=== PATIENT | female | born 1965 | race Caucasian/White ===

== ENCOUNTER 2019-03-20 17:30 | Emergency (ER) | payer OTHER ==
[~2019-03-20] VITALS: Ht 165.1 cm; Wt 63.0 kg
[2019-03-20] MEDS ORDERED: MAGNESIUM SULFATE 2 GM, MVI, ADULT NO.1 WITH VIT K 10 ML, THIAMINE HCL 100 MG, FOLIC AC... IV ONE ×5 (19:45)
[2019-03-20 20:05] LABS: BASOPHILS % (AUTO) 0.5 % (0.0-2.0); EOSINOPHILS % (AUTO) 2.3 % (1.0-6.0); HEMATOCRIT 38.9 % (36-46); HEMOGLOBIN 13.2 g/dL (12.0-16.0); LYMPHOCYTES # (AUTO) 2.8 K/uL (1.0-4.8); LYMPHOCYTES % (AUTO) 57.2 % (22.0-44.0); MEAN CORPUSCULAR HEMOGLOBIN 31.9 pg (26.0-34.0); MEAN CORPUSCULAR HGB CONC 33.8 G/dL (31.0-37.0); MEAN CORPUSCULAR VOLUME 95 fL (80-100); MONOCYTES # (AUTO) 0.3 K/uL (0.1-1.0); MONOCYTES % (AUTO) 5.3 % (2.0-9.0); NEUTROPHILS # (AUTO) 1.7 K/uL (1.8-7.7); NEUTROPHILS % (AUTO) 34.7 % (40.0-70.0); PLATELET COUNT (AUTO) 302 K/uL (150-450); RED BLOOD CELL COUNT(AUTO) 4.12 MIL/uL (4.00-5.20); RED CELL DISTRIBUTION WIDTH 13.1 % (11.5-14.5)
[2019-03-20 20:28] LABS: ANION GAP 6 mmol/L (8-16); CALCIUM, TOTAL 8.5 mg/dL (8.8-10.5); CARBON DIOXIDE 30 mmol/L (22-29); CHLORIDE 110 mmol/L (98-107); CREATININE 0.56 mg/dL (0.60-1.30); GLOMERULAR FILTR. RATE CALC > 60 mL/min (>60); GLUCOSE,RANDOM 110 mg/dL (70-110); POTASSIUM 3.8 mmol/L (3.5-5.1); SODIUM SERUM 146 mmol/L (136-145); UREA NITROGEN, BLOOD 7 mg/dL (7-18)
[2019-03-20 20:34] LABS: ALANINE AMINOTRANSFERASE 21 U/L (12-78); ALBUMIN 3.4 g/dL (3.4-5.0); ALKALINE PHOSPHATASE 81 U/L (46-116); ASPARTATE AMINOTRANSFERASE 15 U/L (15-37); BILIRUBIN,TOTAL 0.1 mg/dL (0.1-1.0); TOTAL PROTEIN, SERUM 6.7 g/dL (6.4-8.2)
[2019-03-21 01:34] VITALS: BP 107/60
== END 2019-03-21 02:14 | disposition home or self-care (01) ==
LOC: EMS 17:30
DX: F10.229 Alcohol dependence with intoxication, unspecified (principal); Z59.0 Homelessness; Y90.7 Blood alcohol level of 200-239 mg/100 ml
CPT/HCPCS: 36415; 80053; 85025; 96365; 96366; 99283; G0480; J3411; J3475; J3490 ×2; J7030

== ENCOUNTER 2019-04-20 19:54 | Emergency (ER) | payer OTHER ==
[~2019-04-20] VITALS: Ht 154.9 cm; Wt 52.3 kg
[2019-04-20 21:36] LABS: APPEARANCE,URINE CLOUDY (CLEAR); GLUCOSE, URINE (UA) NEGATIVE (NEGATIVE); KETONES,URINE NEGATIVE (NEGATIVE); LEUKOCYTE ESTERASE ,URINE MODERATE (NEGATIVE); NITRATE,URINE NEGATIVE (NEGATIVE); OCCULT BLOOD,URINE TRACE (NEGATIVE); PROTEIN,URINE NEGATIVE (NEGATIVE); UROBILINOGEN,URINE 0.2 mg/dL (<=1.0)
[2019-04-20 21:37] LABS: AMPHET/METH SCREEN,URINE POSITIVE (NEGATIVE); BARBITURATE SCREEN, URINE NEGATIVE (NEGATIVE); BENZODIAZEPINES SCREEN,URINE NEGATIVE (NEGATIVE); CANNABINOID SCREEN,URINE NEGATIVE (NEGATIVE); COCAINE SCREEN,URINE NEGATIVE (NEGATIVE); METHADONE SCREEN, URINE NEGATIVE (NEGATIVE); OPIATE SCREEN,URINE NEGATIVE (NEGATIVE)
[2019-04-20 21:38] LABS: PHENCYCLIDINE SCREEN,URINE NEGATIVE (NEGATIVE)
[2019-04-20 21:42] LABS: BASOPHILS % (AUTO) 0.8 % (0.0-2.0); EOSINOPHILS % (AUTO) 1.7 % (1.0-6.0); HEMATOCRIT 38.1 % (36-46); LYMPHOCYTES # (AUTO) 3.3 K/uL (1.0-4.8); MEAN CORPUSCULAR HEMOGLOBIN 31.7 pg (26.0-34.0); MEAN CORPUSCULAR HGB CONC 34.3 G/dL (31.0-37.0); MEAN CORPUSCULAR VOLUME 93 fL (80-100); MONOCYTES # (AUTO) 0.5 K/uL (0.1-1.0); MONOCYTES % (AUTO) 6.6 % (2.0-9.0); NEUTROPHILS # (AUTO) 3.4 K/uL (1.8-7.7); NEUTROPHILS % (AUTO) 45.9 % (40.0-70.0); PLATELET COUNT (AUTO) 297 K/uL (150-450); RED BLOOD CELL COUNT(AUTO) 4.11 MIL/uL (4.00-5.20); RED CELL DISTRIBUTION WIDTH 13.2 % (11.5-14.5)
[2019-04-20 21:42] LABS: BILIRUBIN,URINE PRELIM. POSITIVE (NEGATIVE)
[2019-04-20 21:47] LABS: BACTERIA,URINE Few /HPF (None Seen); CALCIUM OXALATE CRYSTALS,UR Many /LPF (None Seen); RBC,URINE 0-2 /HPF (0-2); SQUAMOUS EPITHELIAL CELL,UR Moderate /LPF (None Seen)
[2019-04-20 21:49] LABS: WBC,URINE 51-100 /HPF (0-5)
[2019-04-20 21:55] LABS: ANION GAP 7 mmol/L (8-16); CALCIUM, TOTAL 9.3 mg/dL (8.8-10.5); CARBON DIOXIDE 29 mmol/L (22-29); CHLORIDE 104 mmol/L (98-107); CREATININE 0.64 mg/dL (0.60-1.30); GLOMERULAR FILTR. RATE CALC > 60 mL/min (>60); GLUCOSE,RANDOM 123 mg/dL (70-110); POTASSIUM 4.2 mmol/L (3.5-5.1); SODIUM SERUM 140 mmol/L (136-145); UREA NITROGEN, BLOOD 16 mg/dL (7-18)
[2019-04-20 22:02] LABS: ALANINE AMINOTRANSFERASE 26 U/L (12-78); ALBUMIN 3.7 g/dL (3.4-5.0); ALKALINE PHOSPHATASE 116 U/L (46-116); ASPARTATE AMINOTRANSFERASE 23 U/L (15-37); BILIRUBIN,TOTAL 0.2 mg/dL (0.1-1.0); TOTAL PROTEIN, SERUM 7.3 g/dL (6.4-8.2)
[2019-04-20 22:44] VITALS: BP 134/68
[2019-04-20] MEDS ORDERED: KETOROLAC TROMETHAMINE 30 MG/ML VIAL IM ONE (22:45)
[2019-04-20] MEDS ORDERED: CEPHALEXIN MONOHYDRATE 500 MG CAPSULE PO ONE (22:45)
== END 2019-04-20 23:14 | disposition home or self-care (01) ==
LOC: EMS 19:55
DX: N39.0 Urinary tract infection, site not specified (principal); F15.10 Other stimulant abuse, uncomplicated; Z59.0 Homelessness
CPT/HCPCS: 36415; 71046; 80053; 80307; 81001; 85025; 87086; 96372; 99284; G0480; J1885

== ENCOUNTER 2019-05-31 12:47 | Inpatient (IN) | payer MEDICAID ==
[~2019-05-31] VITALS: Ht 152.4 cm; Wt 58.9 kg
[2019-05-31 14:42] VITALS: BP 122/73
[2019-05-31] MEDS ORDERED: HALOPERIDOL 5 MG TABLET PO PRN (14:45)
[2019-05-31] MEDS ORDERED: LORazepam 2 MG TABLET PO PRN (14:45)
[2019-05-31] MEDS ORDERED: ZOLPIDEM TARTRATE 10 MG TABLET PO PRN (14:45)
[2019-05-31] MEDS ORDERED: INFLUENZA VIRUS VACCINE QVS 2019-20 (3YR+)/PF 60 MCG/0.5 ML SYRINGE IM ONE (15:15)
[2019-05-31] MEDS ORDERED: NICOTINE 14 MG/24 HOUR PATCH TD PRN (18:45)
[2019-05-31] MEDS ORDERED: CloNIDine HCL 0.1 MG TABLET PO PRN (18:45)
[2019-05-31] MEDS ORDERED: ALBUTEROL SULFATE HFA 90 MCG/PUFF 8 GM INHALER IH PRN (18:45)
[2019-05-31] MEDS ORDERED: IBUPROFEN 400 MG TABLET PO PRN (18:45)
[2019-05-31] MEDS ORDERED: DOCUSATE SODIUM 100 MG CAPSULE PO PRN (18:45)
[2019-05-31] MEDS ORDERED: MAG HYDROX/AL HYDROX/SIMETH ES 30 ML SUSPENSION UDCUP PO PRN (18:45)
[2019-05-31] MEDS ORDERED: MAGNESIUM HYDROXIDE SUSPENSION 30 ML UDCUP PO PRN (18:45)
[2019-05-31] MEDS ORDERED: ONDANSETRON HCL 4 MG TABLET PO PRN (18:45)
[2019-05-31] MEDS ORDERED: ACETAMINOPHEN 325 MG TABLET PO PRN (18:45)
[2019-05-31] MEDS ORDERED: LOPERAMIDE HCL 2 MG CAPSULE PO PRN (18:45)
[2019-05-31] MEDS ORDERED: PETROLATUM,WHITE 28 GM JELLY TP PRN (18:45)
[2019-05-31 19:48] VITALS: BP 109/74
[2019-06-01 02:48] VITALS: BP 120/93
[2019-06-01] MEDS ORDERED: DiphenhydrAMINE HCL 25 MG CAPSULE PO PRN (14:45)
[2019-06-01] MEDS: LORATADINE 10 MG TABLET PO PRN (18:10)
[2019-06-01] MEDS: GuaiFENesin/D-METHORPHAN [SUGAR-FREE] 200-20MG/10 ML SYRUP UDCUP PO PRN (18:10)
[2019-06-01] MEDS: DiphenhydrAMINE HCL 25 MG CAPSULE PO SCH (20:12)
[2019-06-01] MEDS: IBUPROFEN 600 MG TABLET PO PRN (20:12)
[2019-06-01] MEDS: OLANZapine 5 MG RAPDIS TABLET PO SCH (21:00)
[2019-06-02 08:10] VITALS: BP 123/74
[2019-06-02] MEDS: AZITHROMYCIN 250 MG TABLET PO SCH (08:15)
[2019-06-02] MEDS: GuaiFENesin/D-METHORPHAN [SUGAR-FREE] 200-20MG/10 ML SYRUP UDCUP PO PRN ×2 (08:43→17:33)
[2019-06-02] MEDS: LORATADINE 10 MG TABLET PO PRN (16:54)
[2019-06-02] MEDS: DiphenhydrAMINE HCL 25 MG CAPSULE PO SCH (20:43)
[2019-06-02] MEDS: OLANZapine 5 MG RAPDIS TABLET PO SCH (20:44)
[2019-06-03] MEDS: AZITHROMYCIN 250 MG TABLET PO SCH (08:17)
[2019-06-03] MEDS: IBUPROFEN 600 MG TABLET PO PRN (08:56)
[2019-06-03] MEDS: GuaiFENesin/D-METHORPHAN [SUGAR-FREE] 200-20MG/10 ML SYRUP UDCUP PO PRN (08:57)
[2019-06-03] MEDS ORDERED: DIPH50 PO (14:34)
[2019-06-03] MEDS ORDERED: AZIT250T9 PO ×2 (14:34→14:36)
[2019-06-03] MEDS ORDERED: OLAN5TAB40 PO (14:37)
== END 2019-06-03 16:30 | disposition home or self-care (01) | DRG 750 ==
LOC: B3A 14:47
PROVIDERS: ADMIT Psychiatry & Neurology Child & Adolescent Psychiatry; ATTEND Psychiatry & Neurology Child & Adolescent Psychiatry
DX: F20.0 Paranoid schizophrenia (principal); N30.10 Interstitial cystitis (chronic) without hematuria; F10.10 Alcohol abuse, uncomplicated; F17.210 Nicotine dependence, cigarettes, uncomplicated; F41.9 Anxiety disorder, unspecified; G89.29 Other chronic pain; M54.2 Cervicalgia; Z81.8 Family history of other mental and behavioral disorders; Z87.440 Personal history of urinary (tract) infections; Z91.19 Patient's noncompliance with other medical treatment and regimen
CPT/HCPCS: J3535

== ENCOUNTER 2019-06-11 21:38 | Emergency (ER) | payer MEDICAID ==
[~2019-06-11 21:38] MED LIST: AZIT250T9 PO; DIPH50 PO; OLAN5TAB40 PO
== END 2019-06-11 22:00 | disposition left against medical advice (07) ==
LOC: EMS 21:41
DX: J11.1 Influenza due to unidentified influenza virus with other respiratory manifestations (principal); Z53.21 Procedure and treatment not carried out due to patient leaving prior to being seen by health care provider